=== PATIENT | female | born 1945 | race Hispanic/Latino ===

== ENCOUNTER 2020-04-18 16:21 | Emergency (ER) | payer MEDICARE ==
--- NOTE | 2020-04-18 17:25 | Emergency Department Report ---
ED Psych HPI - General Chief Complaint: Psych Stated Complaint: PSYCH Time Seen by Provider: 04/18/20 17:12 Source: patient, EMS Mode of arrival: Stretcher - History of Present Illness Initial Comments: Patient is 75-year-old female with history of advanced dementia and hypertens ion. Patient brought to the emergency room via EMS from [facility] for evaluation of suicidal ideation. Patient told the nurse practitioner over there that she is trying to kill herself by eating hard items. Upon arrival to the ER patient is disoriented and she is wondering why she is here. Patient stated that she had an episode of anger and she told them that she wanted to kill herself but she is not wanted to do that anymore. She denied homicidal ideation. Patient also denied any visual or auditory hallucination. MD Complaint: suicidal ideation Associated Psychiatric Symptoms: suicidal ideation Treatments Prior to Arrival: placed on mental he If Self Harm: admits thoughts of, has plan, self-inflicted trauma - Related Data Home Medications Medication Instructions Recorded Confirmed Last Taken ALPRAZolam [Xanax TAB] 0.5 mg PO QHS PRN 04/18/20 04/21/20 Unknown Aspirin [Adult Aspirin] 81 mg PO DAILY 04/18/20 04/21/20 Unknown AtorvaSTATin [Lipitor] 40 mg PO QHS 04/18/20 04/21/20 Unknown Cholecalciferol (Vitamin D3) 2,000 unit PO DAILY 04/18/20 04/21/20 Unknown [Vitamin D3 2,000 UNIT CAP] Citalopram Hydrobromide 40 mg PO DAILY 04/18/20 04/21/20 Unknown [Citalopram HBr] Eszopiclone [Lunesta] 3 mg PO QHS 04/18/20 04/21/20 Unknown Gabapentin 300 mg PO BID 04/18/20 04/21/20 Unknown Iron Fum,Ps/Folic/Bcomp,C No.9 1 each PO DAILY 04/18/20 04/21/20 Unknown [Integra Plus Capsule] Levothyroxine [Synthroid] 25 mcg PO QAM 04/18/20 04/21/20 Unknown Pantoprazole [Protonix] 40 mg PO QDAY 04/18/20 04/21/20 Unknown Propranolol LA [Inderal LA] 120 mg PO QDAY 04/18/20 04/21/20 Unknown Allergies Allergy/AdvReac Type Severity Reaction Status Date / Time diphenhydramine Allergy Unknown Verified 04/18/20 18:14 [From Benadryl] ED Review of Systems ROS: Stated complaint: PSYCH Other details as noted in HPI Comment: All other systems reviewed and negative Constitutional: denies: chills, fever Respiratory: denies: cough, shortness of breath, SOB with exertion Gastrointestinal: denies: abdominal pain, nausea, vomiting Musculoskeletal: denies: back pain Neurological: confusion. denies: headache, weakness, numbness, paresthesias ED Past Medical Hx - Past Medical History Previous Medical History?: Yes Hx Hypertension: Yes Hx Dementia: Yes Additional medical history: high cholestrol - Surgical History Past Surgical History?: No - Medications Home Medications: Home Medications Medication Instructions Recorded Confirmed Last Taken Type ALPRAZolam [Xanax TAB] 0.5 mg PO QHS PRN 04/18/20 04/21/20 Unknown History Aspirin [Adult Aspirin] 81 mg PO DAILY 04/18/20 04/21/20 Unknown History AtorvaSTATin [Lipitor] 40 mg PO QHS 04/18/20 04/21/20 Unknown History Cholecalciferol (Vitamin D3) 2,000 unit PO DAILY 04/18/20 04/21/20 Unknown H istory [Vitamin D3 2,000 UNIT CAP] Citalopram Hydrobromide 40 mg PO DAILY 04/18/20 04/21/20 Unknown History [Citalopram HBr] Eszopiclone [Lunesta] 3 mg PO QHS 04/18/20 04/21/20 Unknown History Gabapentin 300 mg PO BID 04/18/20 04/21/20 Unknown History Iron Fum,Ps/Folic/Bcomp,C No.9 1 each PO DAILY 04/18/20 04/21/20 Unknown History [Integra Plus Capsule] Levothyroxine [Synthroid] 25 mcg PO QAM 04/18/20 04/21/20 Unknown History Pantoprazole [Protonix] 40 mg PO QDAY 04/18/20 04/21/20 Unknown History Propranolol LA [Inderal LA] 120 mg PO QDAY 04/18/20 04/21/20 Unknown History ED Physical Exam - General Limitations: No Limitations General appearance: alert, in no apparent distress - Head Head exam: Present: atraumatic, normocephalic, normal inspection - Eye Eye exam: Present: normal appearance - ENT ENT exam: Present: normal exam, normal orophraynx, mucous membranes moist - Neck Neck exam: Present: normal inspection, full ROM. Absent: tenderness, meningismus - Respiratory Respiratory exam: Present: normal lung sounds bilaterally - Cardiovascular Cardiovascular Exam: Present: regular rate, normal rhythm, normal heart sounds - GI/Abdominal GI/Abdominal exam: Present: soft, normal bowel sounds. Absent: distended, tenderness, guarding, rebound, rigid, organomegaly, mass, bruit, pulsatile mass, hernia - Extremities Exam Extremities exam: Present: normal inspection, full ROM, normal capillary refill - Back Exam Back exam: Present: normal inspection, full ROM. Absent: CVA tenderness (R), CVA tenderness (L) - Neurological Exam Neurological exam: Present: alert, altered, CN II-XII intact, normal gait. Absent: motor sensory deficit - Psychiatric Psychiatric exam: Present: anxious, suicidal ideation. Absent: homicidal ideation - Skin Skin exam: Present: warm, intact, normal color ED Course Vital Signs 04/18/20 04/18/20 04/19/20 17:33 19:25 05:26 Temperature 98 F 97.6 F 97.6 F Pulse Rate 67 69 72 Respiratory 18 16 18 Rate Blood Pressure 122/85 Blood Pressure 149/64 137/54 [Left] O2 Sat by Pulse 98 96 97 Oximetry 04/19/20 07:58 Temperature 97.6 F Pulse Rate 67 Respiratory 18 Rate Blood Pressure Blood Pressure 110/65 [Left] O2 Sat by Pulse 99 Oximetry ED Medical Decision Making - Lab Data Result diagrams: 04/18/20 17:38 04/18/20 17:38 - Medical Decision Making Patient is 75-year-old female with history of advanced dementia and hypertension. Patient brought to the emergency room via EMS from [facility] for evaluation of suicidal ideation. Patient told the nurse practitioner over there that she is trying to kill herself by eating hard items. Upon arrival to the ER patient is disoriented and she is wondering why she is here. Patient stated that she had an episode of anger and she told them that she wanted to kill herself but she is not wanted to do that anymore. She denied homicidal ideation. Patient also denied any visual or auditory hallucination. Labs reviewed and is unremarkable. Patient is medically cleared to be evaluated by psychiatric team. Critical care attestation.: If time is entered above; I have spent that time in minutes in the direct care of this critically ill patient, excluding procedure time. ED Disposition Clinical Impression: Suicidal ideation Disposition: [id number]/TX-65 PSY HOSP/PSY UNIT Is pt being admited?: No Condition: Stable Referrals: PRIMARY CARE, [Primary Care Provider] - 3-5 Days
[2020-04-18 18:07] LABS: Basophils # (Auto) 0.1 K/mm3 (0.0-0.1); Basophils % (Auto) 0.8 % (0.0-1.8); Eosinophils # (Auto) 0.1 K/mm3 (0.0-0.4); Eosinophils % (Auto) 1.1 % (0.0-4.3); Hematocrit 39.1 % (30.3-42.9); Hemoglobin 13.4 gm/dl (10.1-14.3); Lymphocytes # (Auto) 2.8 K/mm3 (1.2-5.4); Lymphocytes % (Auto) 33.2 % (13.4-35.0); Mean Corpuscular HGB Conc 34 % (30-34); Mean Corpuscular Volume 97 fl (79-97); Monocytes # (Auto) 0.8 K/mm3 (0.0-0.8); Monocytes % (Auto) 8.9 % (0.0-7.3); Platelet Count 208 K/mm3 (140-440); Red Blood Count 4.04 M/mm3 (3.65-5.03); Red Cell Distribution Width 13.9 % (13.2-15.2)
[2020-04-18 18:18] LABS: BUN/Creatinine Ratio 17; Blood Urea Nitrogen 15 mg/dL (7-17); Hemolysis Index 9
[2020-04-18 20:42] LABS: Bacteria,Urine 1+ /HPF (Negative); Bilirubin,Urine NEG (Negative); Blood,Urine NEG (Negative); Color,Urine Yellow (Yellow); Mucus,Urine 3+ /HPF; Urobilinogen,Urine < 2.0 mg/dL (<2.0)
[2020-04-18 20:50] LABS: Amphetamine Screen,Urine PRESUMPTIVE NEGATIVE; Benzodiazepines Screen,Urine PRESUMPTIVE NEGATIVE; Cannabinoid Screen,Urine PRESUMPTIVE NEGATIVE; Cocaine Screen,Urine PRESUMPTIVE NEGATIVE; Methadone Screen,Urine PRESUMPTIVE NEGATIVE; Opiate Screen,Urine PRESUMPTIVE NEGATIVE
[2020-04-19 07:59] VITALS: BP 110/65
--- NOTE | 2020-04-19 11:14 | Consultation ---
History of Present Illness - Reason for Consult Consult date: 04/19/20 Reason for consult: MHE Requesting physician: POLO NAVARRO - History of Present Psychiatric Illness Per ED Provider: Patient is 75-year-old female with history of advanced dementia and hypertension. Patient brought to the emergency room via EMS from [facility] for evaluation of suicidal ideation. Patient told the nurse practitioner over there that she is trying to kill herself by eating hard items. Upon arrival to the ER patient is disoriented and she is wondering why she is here. Patient stated that she had an episode of anger and she told them that she wanted to kill herself but she is not wanted to do that anymore. She denied homicidal ideation. Patient also denied any visual or auditory hallucination. PSYCH HPI Patient is a 75 year old female with advanced dementia hence limiting history. Patient scored 4 on her SLUMS exam. History is limited due to poor memory, patient did say she has thought about hurting herself before, says she is physically fine but not up there while pointing to her head. Patient says she is and she starts to cry thinking of her late and does not know where she is, she says its looks like a nursing facility MENTAL STATUS EXAMINATION General Appearance and Behavior: Age appropriate, good hygiene, wearing appropriate clothes, , good eye contact, cooperative polite with questioning. Cooperation: Participating/engaged Psychomotor Behavior: unremarkable and within normal limits Mood: Good Affect and affective range: labile Thought Process: Loose associations Thought Content:Poverty Speech: Normal volume, Regular rate and rhythm Intellectual Functioning:Poor Suicidal Ideation: sometimes Homicidal Ideation: Denies HI Impulse Control: Impaired Insight and Judgment: Limited insight and judgment Memory: memory impaired Attention: Normal Orientation: Alert Diagnoses: Dementia Treatment Plan This patient is unable to comprehend events leading to her been brought to ER, says she has thought about hurting self but denies SI, scored very low on Mini mental and not able to comprehend question. I do believe her dementia may have a lot more to her behavior, will recommend admission for observation of behavior if consistent with history by EMERGENCY COMMUNICATIONS DISPATCHER from facility. MEDICATIONS: Risks, benefits and alternatives of medications discussed with the patient, questions answered and consent obtained from patient. PSYCHOTHERAPY: Supportive psychotherapy provided MEDICAL: Per primary team DELIRIUM PRECAUTIONS: Please re-orient patient frequently, keep lights on during the day, and minimize benzodiazepines and opiates as these medications could worsen patient's confusion. FERMENTING CELLARS RECEIVER: DISPOSITION: Do Recommend acute inpatient psychiatric hospitalization at this time LEGAL STATUS: 1013 FOLLOW-UP: Will follow Thank you for the consult. Please contact with any questions and/or concerns. Medications and Allergies Allergies Allergy/AdvReac Type Severity Reaction Status Date / Time diphenhydramine Allergy Unknown Verified 04/18/20 18:14 [From Benadryl] Home Medications Medication Instructions Recorded Confirmed Last Taken Type ALPRAZolam [Xanax TAB] 0.5 mg PO QHS 04/18/20 04/18/20 Unknown History Aspirin [Adult Aspirin] 81 mg PO DAILY 04/18/20 04/18/20 Unknown History AtorvaSTATin [Lipitor] 40 mg PO QHS 04/18/20 04/18/20 Unknown History Cholecalciferol (Vitamin D3) 2,000 unit PO DAILY 04/18/20 04/18/20 Unknown History [Vitamin D3 2,000 UNIT CAP] Citalopram Hydrobromide 40 mg PO DAILY 04/18/20 04/18/20 Unknown History [Citalopram HBr] Eszopiclone [Lunesta] 3 mg PO QHS 04/18/20 04/18/20 Unknown History Gabapentin 300 mg PO DAILY 04/18/20 04/18/20 Unknown History Iron Fum,Ps/Folic/Bcomp,C No.9 1 each PO DAILY 04/18/20 04/18/20 Unknown History [Integra Plus Capsule] Levothyroxine [Synthroid] 25 mcg PO QAM 04/18/20 04/18/20 Unknown History Pantoprazole [Protonix] 40 mg PO QDAY 04/18/20 04/18/20 Unknown History Propranolol LA [Inderal LA] 120 mg PO QDAY 04/18/20 04/18/20 Unknown History Mental Status Exam - Vital signs Last Vital Signs Temp 97.6 F 04/19/20 07:58 Pulse 67 04/19/20 07:58 Resp 18 04/19/20 07:58 BP 110/65 04/19/20 07:58 Pulse Ox 99 04/19/20 07:58 Results Result Diagrams: 04/18/20 17:38 04/18/20 17:38 Abnormal lab results 04/18/20 04/18/20 04/18/20 Range/Units 17:38 17:38 17:38 MCH 33 H (28-32) pg [place] % (Auto) 8.9 H (0.0-7.3) % Potassium 3.5 L (3.6-5.0) mmol/L Carbon Dioxide 21 L (22-30) mmol/L Glucose 102 H (65-100) mg/dL Urine WBC (Auto) (0.0-6.0) /HPF Salicylates < 0.3 L (2.8-20.0) mg/dL Acetaminophen (10.0-30.0) ug/mL 04/18/20 04/18/20 Range/Units 17:38 Unknown MCH (28-32) pg [place] % (Auto) (0.0-7.3) % Potassium (3.6-5.0) mmol/L Carbon Dioxide (22-30) mmol/L Glucose (65-100) mg/dL Urine WBC (Auto) 11.0 H (0.0-6.0) /HPF Salicylates (2.8-20.0) mg/dL Acetaminophen 5.0 L (10.0-30.0) ug/mL All other labs normal.
== END 2020-04-19 17:14 ==
LOC: ED 16:21
DX: R45.851 Suicidal ideations (principal); I10 Essential (primary) hypertension; F03.90 Unspecified dementia, unspecified severity, without behavioral disturbance, psychotic disturbance, mood disturbance, and anxiety; Z79.899 Other long term (current) drug therapy; Z88.8 Allergy status to other drugs, medicaments and biological substances
CPT/HCPCS: 36415; 80048; 80307; 81001; 85025; 87086; 99284; U0003; 80320; G0480

== ENCOUNTER 2021-04-01 19:34 | Emergency (ER) | payer MEDICARE ==
[2021-04-01 19:45] VITALS: BP 129/58
[2021-04-01] MEDS ORDERED: ONDANSETRON 4 MG ODT TAB PO ONE (19:58)
[2021-04-01] MEDS ORDERED: oxyCODONE /ACETAMINOPHEN 5-325MG TAB PO ONE (19:58)
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
--- NOTE | 2021-04-01 20:34 | XRay Report ---
RIGHT WRIST 2 VIEWS RIGHT HAND 2 VIEWS INDICATION: Fall, hand and wrist pain. COMPARISON: No relevant prior imaging study available. FINDINGS: Right wrist: There is a predominantly transverse distal radial metaphyseal fracture with dorsal displ acement and angulation of the distal fracture fragment. Fracture involves the distal articular surfac e and there is cortical offset. There is an associated ulnar styloid fracture. No carpal fracture is seen. There is mild subjective osteopenia. Right hand: Positioning is suboptimal due to the wrist fracture. Accounting for this, no acute fractu re or dislocation is seen within the hand. IMPRESSION: 1. Intra-articular distal radius fracture with dorsal angulation and displacement of the distal fract ure fragments. 2. Ulnar styloid fracture. Signer Name: Rah Gudino MD Signed: 04/01/2021 8:29 PM Workstation Name: [id number]
[2021-04-01] MEDS ORDERED: LIDOCAINE (1%) 10 MG/1 ML VIAL 20 ML MDV INFILTRATI ONE (20:58)
--- NOTE | 2021-04-01 23:01 | Event Note ---
Date of service: 04/01/21 Face to Face: For this encounter I have reviewed the PA/SPICE MILLER documentation, treatment plan, medical decision making, and I had face to face time with this patient. Patient presented secondary to right wrist pain after a fall. She did not hit her head or lose consciousness. Her only complaint was of right wrist pain. She was right-hand dominant. On exam, patient had obvious deformity to the right wrist consistent with fracture. She had good pulses. Radiographs are noted. Decision was made to attempt reduction without procedural sedation. She was given analgesics. She was placed in a room. Hematoma block was completed. We attempted some degree of reduction with dorsal pressure on the distal fragments along with distraction. Patient really did not tolerate this very well. There was no significant change in her current presentation. At this time, patient was referred to orthopedic surgery. She has been splinted.
[2021-04-02] MEDS ORDERED: HALOPERIDOL LACTATE 5 MG/1 ML INJ IM ONE (00:05)
[2021-04-02] MEDS ORDERED: oxyCODONE /ACETAMINOPHEN 5-325MG TAB PO ONE (01:16)
== END 2021-04-02 05:30 | disposition home or self-care (01) ==
LOC: ED 19:34
DX: S52.501A Unspecified fracture of the lower end of right radius, initial encounter for closed fracture (principal); S52.614A Nondisplaced fracture of right ulna styloid process, initial encounter for closed fracture; I10 Essential (primary) hypertension; K21.9 Gastro-esophageal reflux disease without esophagitis; F03.90 Unspecified dementia, unspecified severity, without behavioral disturbance, psychotic disturbance, mood disturbance, and anxiety; E78.00 Pure hypercholesterolemia, unspecified; Z88.8 Allergy status to other drugs, medicaments and biological substances; W19.XXXA Unspecified fall, initial encounter; Y93.89 Activity, other specified; Y92.129 Unspecified place in nursing home as the place of occurrence of the external cause; Y99.8 Other external cause status
CPT/HCPCS: 25605; 73100; 73120; 99283; J1630; Q0162

== ENCOUNTER 2021-04-11 06:23 | Day surgery (SDC) | payer MEDICARE ==
[~2021-04-11 06:23] MED LIST: ACETAMINOPHEN 500 MG TAB PO SCH; LACTATED RINGERS 1,000 ML IV SCH; MIDAZOLAM 2 MG/2 ML INJ IV NR; NEOMY 40 MG/POLYMYXIN B 200,000 UNITS/ML (GU) AMPULE IR ONE; SODIUM CHLORIDE 0.9% IRR 1,500 ML BOTTLE IR ONE; fentaNYL 100 MCG/2 ML INJ IV PRN
[2021-04-11] MEDS ORDERED: NEOMY 40 MG/POLYMYXIN B 200,000 UNITS/ML (GU) AMPULE IR ONE (07:05)
[2021-04-11] MEDS ORDERED: LIDOCAINE MPF (2%) 20 MG/1 ML VIAL 5 ML ONE (07:12)
[2021-04-11] MEDS ORDERED: propofoL 200 MG/20 ML VIAL IV ONE (07:12)
[2021-04-11 07:15] LABS: Hematocrit 37.9 % (30.3-42.9); Hemoglobin 12.4 gm/dl (10.1-14.3); Mean Corpuscular HGB Conc 33 % (30-34); Mean Corpuscular Volume 99 fl (79-97); Platelet Count 310 K/mm3 (140-440); Red Blood Count 3.82 M/mm3 (3.65-5.03); Red Cell Distribution Width 14.7 % (13.2-15.2)
[2021-04-11] MEDS ORDERED: fentaNYL 100 MCG/2 ML INJ ONE (07:18)
[2021-04-11 07:30] LABS: BUN/Creatinine Ratio 29; Blood Urea Nitrogen 23 mg/dL (7-17); Calcium 9.2 mg/dL (8.4-10.2); Hemolysis Index 86
[2021-04-11] MEDS ORDERED: BUPIVACAINE/PF (0.25%) 2.5 MG/ML 30 ML VIAL INFILTRATI ONE (07:46)
--- NOTE | 2021-04-11 08:07 | Anesthesia Consultation ---
Anesthesia Consult and Med Hx Date of service: 04/11/21 - Airway Anesthetic Teeth Evaluation: Good ROM Head & Neck: Adequate Mental/Hyoid Distance: Adequate Mallampati Class: Class II Intubation Access Assessment: Probably Good - Cardiac Exam Cardiac Exam: RRR - Pre-Operative Health Status ASA Pre-Surgery Classification: ASA3 Proposed Anesthetic Plan: MAC Nerve Block: supraclavicular - Pulmonary Hx Smoking: Yes (quit 2013) Hx Respiratory Symptoms: No Hx Sleep Apnea: No (MART[facility]N PRE SCREEN LOW RISK) - Cardiovascular System Hx Hypertension: Yes Hx Heart Attack/AMI: No Hx Percutaneous Transluminal Coronary Angioplasty (PTCA): No - Central Nervous System CVA: No Hx Back Pain: Yes Hx Psychiatric Problems: Yes (dementia) - Gastrointestinal Hx Ulcer: Yes - Endocrine Hx Renal Disease: No Hx Liver Disease: No Hx Insulin Dependent Diabetes: No Hx Non-Insulin Dependent Diabetes: No Hx Hypothyroidism: Yes - Other Systems Hx Obesity: No - Additional Comments Anesthesia Medical History Comments: No hx anesthetic complications. Hx obtained from chart review and family at bedside.
--- NOTE | 2021-04-11 08:08 | Anesthesia Day of Surgery ---
Anesthesia Day of Surgery - Day of Surgery Patient Examined: Yes Patient H&P Reviewed: Yes Patient is NPO: Yes
--- NOTE | 2021-04-11 10:50 | Post Anesthesia Evaluation ---
- Post Anesthesia Evaluation Patient Participated: Yes Airway Patent: Yes Stable Respiratory Function: Yes Nausea/Vomiting: No Temp > 96.8F: Yes Pain Manageable: Yes Adequeate Hydration: Yes Anesthesia Complications: No Block Receding Appropriately: Yes (sling provided)
[2021-04-11 11:11] VITALS: BP 105/47
--- NOTE | 2021-04-11 11:20 | Operative Report ---
Operative Report Operative Report: [OP REPORT TEMPLATE] Preop diagnosis : Distal radius fracture, right wrist Postop diagnosis: Distal radius fracture, displaced approaching 2 weeks old, right wrist Procedure: Closed reduction under fluoroscopy with application of short arm cast, right wrist Surgeon : Cal Mukherjee M.D. Protection Manager : none Anesthesia : Regional block with IV conscious sedation Anesthesiologist : (see operative note by circulating nurse ) DETAILS of OPERATIVE TECHNIQUE (or Procedure) : ---- The Patient was prepared in the holding area and was brought to the operating room where she was placed on the operating table in the supine position. A suprascapular regional nerve block was then performed followed by IV conscious sedation with Propofal and appropriate analgesics. Utilizing the large C arm fluoroscope, the right distal radius fracture was evaluated in both AP and lateral planes. Patient was noted to have a distal radius fracture with minimal comminution with significant displacement dorsally and radially. The distal radial articular surface was also inclined dorsally and there was a small avulsion from the ulnar styloid. With the acquisitions assistant holding the arm proximally providing countertraction a reduction maneuver was carried out by distracting the distal fragment and utilizing thumb pressure on the distal fragment to reduce the fracture into a more anatomic alignment. C-arm images were immediately taken which showed near anatomic alignment with excellent establishment of the distal articular surface and no positive ulnar variance. A Short arm cast was then wrapped and applied in stages with excellent molding of the cast in slight flexion and ulnar deviation at the fracture site. Once the cast was set, final images revealed excellent maintenance of the alignment. The Patient was then awakened and taken to recovery room in excellent condition. EBL : NA Complications : NONE Tourniquet Time : NA EDDI PERRY MD
--- NOTE | 2021-04-11 14:24 | XRay Report ---
XR wrist 2V RT INDICATION / CLINICAL INFORMATION: RT WRIST FX/ORIF RT WRIST. COMPARISON: 04/01/2021 FINDINGS: Interval reduction at the distal radius. Lateral displacement of the distal fragment remains. The pat ient is now in a plaster cast. Fluoroscopy time: 25 seconds. Fluoroscopic images: 2. Signer Name: Leonard Wilson MD Signed: 04/11/2021 2:20 PM Workstation Name: [id number]
== END 2021-04-11 10:40 | disposition home or self-care (01) ==
LOC: OR 06:23
PROVIDERS: ATTEND Orthopaedic Surgery
DX: S52.501A Unspecified fracture of the lower end of right radius, initial encounter for closed fracture (principal); S52.613A Displaced fracture of unspecified ulna styloid process, initial encounter for closed fracture; I10 Essential (primary) hypertension; E03.9 Hypothyroidism, unspecified; E78.00 Pure hypercholesterolemia, unspecified; G47.30 Sleep apnea, unspecified; I48.91 Unspecified atrial fibrillation; F41.9 Anxiety disorder, unspecified; F32.9 Major depressive disorder, single episode, unspecified; Z79.899 Other long term (current) drug therapy; Z98.890 Other specified postprocedural states; Z87.891 Personal history of nicotine dependence; Z88.0 Allergy status to penicillin; Z88.8 Allergy status to other drugs, medicaments and biological substances; X58.XXXA Exposure to other specified factors, initial encounter; Y93.89 Activity, other specified; Y92.89 Other specified places as the place of occurrence of the external cause; Y99.8 Other external cause status
CPT/HCPCS: 25605; 36415; 64415; 73100; 80048; 85027; J2250; J2704; J3010; J7120; 64450

== ENCOUNTER 2021-04-19 09:10 | Outpatient (CLI) | payer MEDICARE ==
--- NOTE | 2021-04-19 09:50 | XRay Report ---
Right wrist-3 views INDICATION: UNSPECIFIED FRACTURE OF THE LOWER END OF RIGHT RADIUS. COMPARISON: None. IMPRESSION: Comminuted intra-articular fracture of the distal radius with mild dorsal displacement o f the carpus and slight dorsal tilt. There is a fracture fragment on the lateral view which projects along the volar aspect of the distal radius. Overlying cast is present. Signer Name: Jordan Singleton MD Signed: 04/19/2021 9:45 AM Workstation Name: [id number]
== END 2021-04-19 09:11 | disposition home or self-care (01) ==
LOC: XRAY 09:10
PROVIDERS: ATTEND Orthopaedic Surgery
DX: S52.501A Unspecified fracture of the lower end of right radius, initial encounter for closed fracture (principal); X58.XXXA Exposure to other specified factors, initial encounter; Y93.89 Activity, other specified; Y92.89 Other specified places as the place of occurrence of the external cause; Y99.8 Other external cause status

== ENCOUNTER 2021-05-14 14:06 | Outpatient (CLI) | payer MEDICARE ==
--- NOTE | 2021-05-14 16:04 | XRay Report ---
Right wrist 3 views INDICATION: Wrist pain FINDINGS: Comparison is made with April 19, 2021. Comminuted displaced distal radial fracture with i ntra-articular extension. Alignment appears similar to prior examination. No significant callus forma tion or healing of this time. Signer Name: Stephen Ogden MD Signed: 05/14/2021 4:00 PM Workstation Name: [email or web address]
== END 2021-05-14 14:07 | disposition home or self-care (01) ==
LOC: XRAY 14:06
PROVIDERS: ATTEND Orthopaedic Surgery
DX: S52.591A Other fractures of lower end of right radius, initial encounter for closed fracture (principal); S52.501A Unspecified fracture of the lower end of right radius, initial encounter for closed fracture; X58.XXXA Exposure to other specified factors, initial encounter; Y93.89 Activity, other specified; Y92.89 Other specified places as the place of occurrence of the external cause; Y99.8 Other external cause status

== ENCOUNTER 2021-06-04 13:12 | Outpatient (CLI) | payer MEDICARE ==
--- NOTE | 2021-06-04 16:10 | XRay Report ---
Right wrist-4 views INDICATION: UNSPECIFIED FRACTURE OF THE LOWER RIGHT RADIUS. COMPARISON: 05/14/2021 IMPRESSION: A true lateral view was not provided. No significant change in healing or alignment of t he comminuted distal radial fracture with mild dorsal angulation. No new abnormality. Signer Name: Jordan Singleton MD Signed: 06/04/2021 4:06 PM Workstation Name: [id number]
== END 2021-06-04 13:13 | disposition home or self-care (01) ==
LOC: XRAY 13:12
PROVIDERS: ATTEND Orthopaedic Surgery
DX: S52.501A Unspecified fracture of the lower end of right radius, initial encounter for closed fracture (principal); S52.613A Displaced fracture of unspecified ulna styloid process, initial encounter for closed fracture; X58.XXXA Exposure to other specified factors, initial encounter; Y93.89 Activity, other specified; Y92.89 Other specified places as the place of occurrence of the external cause; Y99.8 Other external cause status